=== PATIENT | female | born 1995 | race African-American/Black ===

== ENCOUNTER 2019-03-29 20:04 | Emergency (ER) | payer OTHER ==
[~2019-03-29] VITALS: Ht 165.1 cm; Wt 72.6 kg
[2019-03-29 20:54] VITALS: BP 138/87
== END 2019-03-29 21:38 | disposition left against medical advice (07) ==
LOC: ER 20:04
DX: Z53.21 Procedure and treatment not carried out due to patient leaving prior to being seen by health care provider (principal)